=== PATIENT | female | born 2000 | race Caucasian/White ===

== ENCOUNTER 2020-08-08 17:12 | Outpatient (CLI) | payer OTHER ==
[~2020-08-08 17:12] MED LIST: AUGMENTIN 875-1 EACH PO; BENTYL 20MG TAB20 MG PO; COLACE 100MG C100 MG PO; IBUPROFEN400 MG PO; NORCO 5-325 TA1 EACH PO; REGLAN10 MG PO; ZANTAC150 MG PO; ZOFRAN4 MG PO; ZYRTEC10 M3 PO
== END 2020-08-08 18:55 | disposition home or self-care (01) ==
LOC: GENOP 17:12
DX: O42.913 Preterm premature rupture of membranes, unspecified as to length of time between rupture and onset of labor, third trimester (principal); O99.891 Other specified diseases and conditions complicating pregnancy; M54.9 Dorsalgia, unspecified; Z3A.30 30 weeks gestation of pregnancy
CPT/HCPCS: 83518; G0463

== ENCOUNTER 2020-08-18 02:34 | Outpatient (CLI) | payer OTHER | END 2020-08-18 04:13 | disposition short-term general hospital (02) | LOC: GENOP 02:34 | DX: O42.913 Preterm premature rupture of membranes, unspecified as to length of time between rupture and onset of labor, third trimester (principal) | CPT/HCPCS: 51702; 83518; 96365; 96366; 96367; 96372; J0290; J0456; J3105; J3475; J7030 ==